=== PATIENT | female | born 1950 | race Caucasian/White ===

== ENCOUNTER 2016-11-22 17:24 | Emergency (ER) | payer OTHER ==
[~2016-11-22] VITALS: Ht 144.8 cm; Wt 75.5 kg
[~2016-11-22 17:24] MED LIST: HYDR-3498 PO; IBUP-1542 PO; TRAM-40 PO
[2016-11-22 17:26] VITALS: Ht 144.8 cm; Wt 75.5 kg
[2016-11-22] MEDS ORDERED: KETOROLAC 30 MG INJ IV STA (17:51)
[2016-11-22 18:14] LABS: ADD SCAN DIFF NO
[2016-11-22 18:23] LABS: ADD UMIC YES; UR ASCORBIC ACID NEGATIVE (NEGATIVE); UR BILIRUBIN (Dip) NEGATIVE (NEGATIVE); UR BLOOD (Dip) NEGATIVE (NEGATIVE); UR CLARITY CLOUDY (CLEAR); UR COLOR YELLOW (YELLOW); UR GLUCOSE (Dip) NEGATIVE (NEGATIVE); UR KETONES (Dip) 1+ mg/dL (NEGATIVE); UR LEUKOCYTE ESTERASE (Dip) NEGATIVE Leu/ul (NEGATIVE); UR MUCUS MANY /HPF (NONE SEEN); UR NITRITE (Dip) NEGATIVE (NEGATIVE); UR RBC 1 /HPF (0-5); UR SPECIFIC GRAVITY (Dip) 1.032 (1.003-1.030); UR SQUAMOUS EPITHELIAL CELL MODERATE /HPF (FEW); UR TOTAL PROTEIN (Dip) 1+ mg/dl (NEGATIVE); UR UROBILINOGEN (Dip) NEGATIVE (NEGATIVE)
[2016-11-22 18:29] LABS: ABNORMAL IP MESSAGE 1; HEMATOCRIT 43.8 % (37.0-47.0); HEMOGLOBIN 15.1 g/dl (12.0-16.0); MEAN CORPUSCULAR HEMOGLOBIN 28.4 pg (29.0-33.0); MEAN CORPUSCULAR HGB CONC 34.5 g/dl (32.0-37.0); MEAN CORPUSCULAR VOLUME 82.5 fl (82.0-101.0); MEAN PLATELET VOLUME 10.3 fl (7.4-10.4); PLATELET COUNT 297 10^3/UL (140-415); RED BLOOD COUNT 5.31 10^6/ul (4.20-5.40); RED CELL DISTRIBUTION WIDTH 13.7 % (11.5-14.5); WHITE BLOOD COUNT 13.9 10^3/ul (4.8-10.8)
[2016-11-22 18:42] LABS: ALBUMIN/GLOBULIN RATIO 1.51; BILIRUBIN,INDIRECT 0.2 mg/dl (0-1.1); BILIRUBIN,TOTAL 0.2 mg/dl (0.2-1.3); CALCIUM 9.6 mg/dl (8.4-10.2); CREATININE 0.6 mg/dl (0.44-1.00); POTASSIUM 3.9 mmol/L (3.5-5.1); TOTAL PROTEIN 8.3 g/dl (6.1-8.1)
[2016-11-22 18:47] LABS: EOSINOPHILS # 0.1 10^3/ul (0.0-0.5); LYMPHOCYTES # 4.7 10^3/ul (0.8-2.9)
--- NOTE | 2016-11-22 18:55 | RADRPT ---
PROCEDURE: CT Abdomen and Pelvis without contrast. CLINICAL INDICATION: Abdominal and pelvic pain. TECHNIQUE: CT scan of the abdomen and pelvis without contrast was performed. Coronal and sagittal reformatted images were obtained from the axial source images. Images were reviewed on a high-res[employer] PACS workstation. Total exam DLP is 1160.41 mGy-cm. CTDIvol is 21.42 mGy. One or more of the following dose reduction techniques were used: Automated exposure control, adjustment of the mA and/ or kV according to patient size, use of iterative reconstruction technique. COMPARISON: None. FINDINGS: The lung bases are normal. There is no pleural effusion. The liver is normal in size and diffusely decreased in attenuation. There is no focal hepatic lesio n. The gallbladder and bile ducts are normal. The spleen is normal in size. There is no focal splenic lesion. There is a small low attenuation nodule superiorly in the right adrenal measuring 1.0 x 0.9 cm. The adrenals are otherwise normal. The pancreas is unremarkable with no mass or evidence of pancreatitis. There is no renal mass or hydronephrosis. There is no renal calculus or ureteral calculus. The abdominal aorta is not dilated. There is calcification in the aorta consistent with atherosclero sis. There is no retroperitoneal lymphadenopathy or mass. There is no pelvic lymphadenopathy or mass. The bladder and distal ureters are normal. The periappendiceal region is unremarkable with no evidence of appendicitis. The appendix is well se en and appears normal. The bowel and mesentery are normal. There is no free fluid or free gas. There are degenerative changes of the spine and hips. There is moderate to severe central spinal elizabeth nosis at L3-4. There is severe central and bilateral foraminal stenosis at L4-5. There is no fractu re or lytic lesion. IMPRESSION: 1. Fatty metamorphosis of the liver. 2. Small 1 cm nodule superiorly in the right adrenal, probably benign. 3. Atherosclerosis. 4. Normal appendix. 5. Degenerative changes of the spine and hips. 6. Moderate to severe central spinal stenosis at L3-4. 7. Severe central and bilateral foraminal stenosis at L4-5. RPTAT: QQ .Bi Box MD, Date Time Electronically viewed and signed by .Bi Box MD, on 11/22/2016 18:55 .R/
[2016-11-22] MEDS ORDERED: IBUP-1542 PO (19:03)
[2016-11-22] MEDS ORDERED: TRAM-40 PO (19:03)
--- NOTE | 2016-11-22 19:13 | ERD ---
ER Documentation Chief Complaint Date/Time DATE: 11/22/16 TIME: 19:10 Chief Complaint RIGHT LOWER BACK PAIN SINCE AM NO INJURY/TRAUMA HPI This 66-year-old female presents with a one-day history of pain in her right mid back. She has a history of trauma or inciting events. She has a history of fevers, vomiting, shortness of the chest pain and no urinary complaints. She denies bowel or bladder incontinence or weakness. ROS All systems reviewed and are negative except as per history of present illness. Medications Home Meds Active Scripts Tramadol Hcl* (Ultram*) 50 Mg Tablet, 50 MG PO Q6H Y for PAIN, #20 TAB Prov:GARETH JULIEN MD 11/22/16 Ibuprofen* (Motrin*) 600 Mg Tab, 600 MG PO Q6, #20 TAB Prov:GARETH JULIEN MD 11/22/16 Tramadol Hcl* (Ultram*) 50 Mg Tablet, 50 MG PO Q6H Y for PAIN, #14 TAB Prov:GARETH JULIEN MD 06/01/15 Ibuprofen* (Motrin*) 600 Mg Tab, 600 MG PO Q6, #20 TAB Prov:GARETH JULIEN MD 06/01/15 Ibuprofen* (Motrin*) 600 Mg Tab, 600 MG PO Q6, #20 TAB Prov:REYNA LEWIS PA-C 03/09/15 Hydrocodone Bit-Acetaminophen* ([place]*) 5-325 Mg Tab, 1 TAB PO Q6 Y for PAIN, # 10 TAB Prov:REYNA LEWIS PA-C 03/09/15 PMhx/Soc History of Surgery: No Anesthesia Reaction: No Hx Neurological Disorder: No Hx Respiratory Disorders: No Hx Cardiac Disorders: Yes (HTN ) Hx Psychiatric Problems: No Hx Alcohol Use: No Hx Substance Use: No Hx Tobacco Use: No Smoking Status: Never smoker Physical Exam Vitals Vital Signs Date Time Temp Pulse Resp B/P Pulse Ox O2 Delivery O2 Flow Rate FiO2 11/22/16 17:26 97.8 87 20 195/94 97 Physical Exam Const: [] Alert, not ill-appearing. Head: Atraumatic Eyes: Normal Conjunctiva ENT: Normal External Ears, Nose and Mouth. Neck: Full range of motion..~ No meningismus. Resp: Clear to auscultation bilaterally Cardio: Regular rate and rhythm, no murmurs Abd: Soft, non tender, non distended. Normal bowel sounds Skin: No petechiae or rashes Back: No midline or flank tenderness. Tenderness in the right mid abdomen approximately L2-L3. No gross CVA tenderness. Ext: No cyanosis, or edema Neur: Awake and alert Psych: Normal Mood and Affect Result Diagram: 11/22/16 1800 11/22/16 1800 Results 24 hrs Laboratory Tests Test 11/22/16 18:00 White Blood Count 13.910^3/ul Red Blood Count 5.3110^6/ul Hemoglobin 15.1g/dl Hematocrit 43.8% Mean Corpuscular Volume 82.5fl Mean Corpuscular Hemoglobin 28.4pg Mean Corpuscular Hemoglobin Concent 34.5g/dl Red Cell Distribution Width 13.7% Platelet Count 87223^3/UL Mean Platelet Volume 10.3fl Neutrophils % 65.0% Lymphocytes % 34.0% Eosinophils % 1.0% Neutrophils # 9.010^3/ul Lymphocytes # 4.710^3/ul Eosinophils # 0.110^3/ul Urine Color YELLOW Urine Clarity CLOUDY Urine pH 5.0 Urine Specific Jackson 1.032 Urine Ketones 1+mg/dL Urine Nitrite NEGATIVEmg/dL Urine Bilirubin NEGATIVEmg/dL Urine Urobilinogen NEGATIVEmg/dL Urine Leukocyte Esterase NEGATIVELeu/ul Urine Microscopic RBC 1/HPF Urine Microscopic WBC 2/HPF Urine Squamous Epithelial Cells MODERATE/HPF Urine Mucus MANY/HPF Urine Hemoglobin NEGATIVEmg/dL Urine Glucose NEGATIVEmg/dL Urine Total Protein 1+mg/dl Sodium Level 142mmol/L Potassium Level 3.9mmol/L Chloride Level 105mmol/L Carbon Dioxide Level 26mmol/L Anion Gap 15 Blood Urea Nitrogen 19mg/dl Creatinine 0.60mg/dl Glucose Level 100mg/dl Calcium Level 9.6mg/dl Total Bilirubin 0.2mg/dl Direct Bilirubin 0.00mg/dl Indirect Bilirubin 0.2mg/dl Aspartate Amino Transf (AST/SGOT) 28IU/L Alanine Aminotransferase (ALT/SGPT) 43IU/L Alkaline Phosphatase 101IU/L Total Protein 8.3g/dl Albumin 5.0g/dl Globulin 3.30g/dl Albumin/Globulin Ratio 1.51 Lipase 66U/L Current Medications Medications (Trade) Dose Ordered Sig/Orestes Route PRN Reason Start Time Stop Time Status Last Admin Dose Admin Ketorolac Tromethamine (Toradol) 30 mg ONCE STAT IV 11/22/16 17:51 11/22/16 17:53 DC 11/22/16 18:06 Procedures/MDM Patient presents with right-sided mid back pain of uncertain etiology times today. Patient is then mild to moderate pain. CBC shows white blood cell count 13.9 and urine shows no signs of infection, glucose, nitrates, hemoglobin. CMP shows no acute abnormalities and lipase is normal. Given the location uncertain cause of pain CT abdomen pelvis are performed shows no acute abnormalities to explain the patient's pain. Patient was given Toradol 30 mg IV for muscle skeletal back pain. Patient will be treated for muscular skeletal back pain. Signs and symptoms and findings do not suggest aortic disease, renal etiology, acute abdomen, appendicitis, hepatobiliary disease, pneumonia, epidural abscess, fracture, dislocation, additional causes of presenting complaints. Patient is advised to recheck for any worsening symptoms or primary care doctor this week. Departure Diagnosis: Primary Impression: Back pain Back pain location: low back pain Chronicity: acute Back pain laterality: right Sciatica presence: without sciatica Qualified Code: M54.5 - Acute right-sided low back pain without sciatica Condition: Stable Patient Instructions: Back Pain (Acute Or Chronic) Additional Instructions: EXAMINES DICE PROBABLAMENTE MUSCULOS/ DEL ARTRITIS. Cheque otro vez con avalos doctor primario en el proximo summers or regresa para mas o nueva simptomas. GARETH JULIEN MD Nov 22, 2016 19:12
== END 2016-11-22 19:45 | disposition home or self-care (01) ==
LOC: FTE 17:24
DX: M54.5 Low back pain (principal); I10 Essential (primary) hypertension
CPT/HCPCS: 36415; 74176; 80053; 81001; 83690; 85025; 96374; J1885; Z7502

== ENCOUNTER 2017-05-31 19:37 | Emergency (ER) | END 2017-06-01 01:42 | disposition home or self-care (01) ==